=== PATIENT | male | born 1995 | race Asian ===

== ENCOUNTER 2016-10-03 15:47 | Emergency (ER) | payer BC ==
[~2016-10-03] VITALS: Ht 190.5 cm; Wt 114.9 kg
[2016-10-03 15:54] VITALS: BP 120/73; PULSE 99; TEMP 36.9; O2SAT 96; Ht 190.5 cm; Wt 114.9 kg
--- NOTE | 2016-10-03 16:22 | DIAGNOSTIC IMAGING REPORT ---
LEFT HAND MIN 3 VIEWS ROUTINE CLINICAL HISTORY: left hand injury trauma. Pain. COMPARISON: None. DISCUSSION: Nondisplaced cortical oblique fracture midshaft third metacarpal. All remaining osseous structures are unremarkable. No evidence of dislocation. Mild soft tissue edema. IMPRESSION: nondisplaced cortical fracture midshaft third metacarpal Electronically signed by: Alli Lira M.D. 10/03/2016 4:20 PM Dictated Date/Time: 10/03/2016 4:19 PM
[2016-10-03] MEDS ORDERED: Proair HFA INH (16:30)
--- NOTE | 2016-10-03 17:02 | EMERGENCY ROOM VISIT NOTE ---
ED Visit Note First contact with patient: 15:57 CHIEF COMPLAINT: Hand injury HISTORY OF PRESENT ILLNESS: This 21-year-old male patient presented to the emergency department ambulatory after they injured the left hand last night. The patient reports that he tripped and fell, landing onto the left hand. The patient rates the pain as dull and 7/10. He reports the pain is primarily in his third and fourth fingers and in the palm adjacent to these fingers. The patient denies any numbness or tingling. The patient does not have injuries to the wrist. The patient has knocked had a previous fracture to this hand. REVIEW OF SYSTEMS: A 6 system review of systems was completed with positives and pertinent negatives in the HPI. ALLERGIES: Amoxicillin, lactose MEDICATIONS: Pro Air inhaler PMH: Asthma SOCIAL HISTORY: The patient is a [employer] student and lives locally with a roommate. He denies tobacco use, but admits to occasional alcohol use. PHYSICAL EXAM: Vital Signs: Reviewed Nurse's notes, vital signs stable. GENERAL : This is a 21-year-old male, in no acute distress, but appears to be in pain, well-developed, well-nourished. MUSCULOSKELETAL: There is no deformity of the left hand. There is tenderness over the third and fourth metacarpals. There is no thenar or hypothenar eminence atrophy. Normal thumb opposition to all fingers. Him Assistant strength 5/5. There is no laceration. Capillary refill less than 2 seconds. No tenderness of the fingers or wrist. Full range of motion of the wrist. No snuff box tenderness. Radial pulse 2+. NEURO: Alert and oriented to person, place, and time. Normal sensation to light and sharp touch. RADIOGRAPHIC FINDINGS: LEFT HAND MIN 3 VIEWS ROUTINE CLINICAL HISTORY: left hand injury trauma. Pain. COMPARISON: None. DISCUSSION: Nondisplaced cortical oblique fracture midshaft third metacarpal. All remaining osseous structures are unremarkable. No evidence of dislocation. Mild soft tissue edema. IMPRESSION: nondisplaced cortical fracture midshaft third metacarpal EMERGENCY DEPARTMENT COURSE: I examined the patient. An x-ray of the left hand was reviewed by myself and radiology and shows a fracture of the third metacarpal. The patient was placed in an Ortho-Glass volar splint by the ED auto technician under my supervision. Neurovascular status was reassessed by myself and was intact. The patient was given information for orthopedic follow-up. He verbalized understanding of my assessment and treatment plan. The patient was discharged home in good condition. DIAGNOSIS: Metacarpal fracture Current/Historical Medications Scheduled PRN [Proair HFA], 2 PUFFS INH UD PRN for Asthma Symptoms Allergies Coded Allergies: Lactose. (Verified Allergy, Intermediate, GI symptoms, 10/03/16) Amoxicillin (Verified Allergy, Unknown, HIVES, 06/21/14) Vital Signs Date Time Temp Pulse Resp B/P Pulse Ox O2 Delivery O2 Flow Rate FiO2 10/03/16 15:54 36.9 99 18 120/73 96 Room Air Departure Information Impression Primary Impression: Fracture, metacarpal shaft Dispostion Home / Self-Care Condition GOOD Referrals [facility] (PCP) Steven Latif M.D. Patient Instructions My [facility] Additional Instructions You have been treated in the Emergency Department for a hand fracture. For pain control, you can use the following [id number] medicines (if >12 yo): - Regular strength (325mg/tab) Tylenol (acetaminophen) 2 tabs every 4-6 hours as needed. Do not exceed 12 tablets in a 24 hour period. Avoid taking more than 4 grams (4000 mg) of Tylenol per day. This includes any other sources of acetaminophen you may take on a regular basis. - Regular strength (200 mg/tab) Advil (ibuprofen) 1-2 tabs every 4-6 hours as needed. Do not exceed a dose of 3200 mg per day. If this is a recent injury (<24 hrs), ice can be applied to the area of pain for the first 3 days to help decrease pain and inflammation. You have been provided the number for an Orthopaedic Surgeon. You should call this number as soon as possible to establish a follow-up visit from today's Emergency Department visit. Keep the splint in place until evaluated by Orthopedics. Do NOT get the splint wet. Return to the Emergency Department if your current symptoms worsen despite treatment course outlined above, or if you develop any of the following symptoms : intractable pain despite aforementioned treatment course or new onset of numbness or tingling of the fingers. Problem Qualifiers Primary Impression: Fracture, metacarpal shaft Encounter type: initial encounter Metacarpal bone: third Fracture type: closed Fracture alignment: nondisplaced Laterality: left Qualified Codes: S62.353A - Nondisplaced fracture of shaft of third metacarpal bone, left hand, initial encounter for closed fracture
== END 2016-10-03 17:09 | disposition home or self-care (01) ==
LOC: C.EDB 15:48 → C.EDD 17:09
DX: S62.353A Nondisplaced fracture of shaft of third metacarpal bone, left hand, initial encounter for closed fracture (principal); W01.0XXA Fall on same level from slipping, tripping and stumbling without subsequent striking against object, initial encounter; Z79.899 Other long term (current) drug therapy; Z88.1 Allergy status to other antibiotic agents; Z91.011 Allergy to milk products